=== PATIENT | male | born 1950 | race Caucasian/White ===

== ENCOUNTER 2017-04-30 23:20 | Emergency (ER) | payer MEDICARE, OTHER ==
[~2017-04-30] VITALS: Ht 167.6 cm; Wt 90.0 kg
[2017-04-30 23:38] VITALS: BP 123/71; PULSE 71; RESP 16; O2SAT 95
[2017-04-30] MEDS ORDERED: HALOPERIDOL LACTATE 5 MG/ML AMP IM ONE (23:45)
--- NOTE | 2017-04-30 23:51 | PD ---
Physical Exam Date Seen by Provider: Apr 30, 2017 Time Seen by Provider: 23:45 Narrative Patient is brought in by police under a Crane Act. He was reportedly at a bar and became very intoxicated. He was asked to leave. The police attempted to take him home but he could not remember where he lived. He reportedly subsequently told the police that he just needed to . They then took out a Crane Act and brought him to us. Data Data Last Documented VS Vital Signs Date Time Temp Pulse Resp B/P (MAP) Pulse Ox O2 Delivery O2 Flow Rate FiO2 04/30/17 23:38 71 16 123/71 (88) 95 Orders Orders Restraints Non-Violent MELANIA.Q3H (04/30/17 23:39) Haloperidol Inj (Haldol Inj) (04/30/17 23:45) MDM Supervised Visit with DANIA: Yes Narrative Course I, Dr. Matos, have reviewed the advance practice practitioner's documentation and am in agreement, met with the patient face to face, made the diagnosis, and the medical decision making was done by me. *My assessment and Findings: Patient is intoxicated. He is intermittently uncooperative. However, he does not meet criteria for a Crane Act. He is simply intoxicated. The Crane Act has been lifted. He will be kept here until morning for his safety. Please see Mark Farris PA-C's note for results of laboratory and radiographic evaluation, ED course, final diagnosis and disposition Deidra Matos MD Apr 30, 2017 23:51
--- NOTE | 2017-05-01 00:42 | PD ---
HPI Chief Complaint: Alcohol/Drug Intoxication Time Seen by Provider: 23:24 Travel History International Travel<30 days: No Contact w/Intl Traveler<30days: No Traveled to known affect area: No History of Present Illness HPI 66-year-old white male presents to emergency department under a Crane act by PD. They had responded to a intoxicated individual at a bar. 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 He was asked to leave. The patient became disruptive. Police attempted to bring the patient to his residence. Unfortunately the patient was unable to determine his residence. PD was concerned that he was too intoxicated to be left alone. The then made statements that he just wanted to so the police officer booking placed him under Crane act. The patient here denies any suicidal ideation. He denies any homicidal ideation. He admits to consuming a large amount of alcohol today. He has no medical complaints. [facility] Past Medical History High Cholesterol: Yes Coronary Artery Disease: Yes Diabetes: Yes Patient Takes Glucophage: No Diminished Hearing: No Hypertension: Yes Past Surgical History Coronary Stent: Yes ("3 OR 4 STENTS") Social History Alcohol Use: Yes Tobacco Use: No Substance Use: No Allergies-Medications (Allergen,Severity, Reaction): Coded Allergies: No Known Allergies (Unverified , 04/30/17) Review of Systems ROS Limitations: Intoxication Physical Exam Narrative GENERAL: Well-nourished, well-developed patient. Patient appears intoxicated. Smells of EtOH. He is ataxic. SKIN: Warm and dry. HEAD: Normocephalic and atraumatic. EYES: No scleral icterus. No injection or drainage. ENT: No nasal drainage noted. Mucous membranes pink. Airway patent. NECK: Supple, trachea midline. Moves head freely without obvious discomfort. CARDIOVASCULAR: Regular rate and rhythm without murmurs, gallops, or rubs. RESPIRATORY: Breath sounds equal bilaterally. No accessory muscle use. GASTROINTESTINAL: Abdomen soft, non-tender, nondistended. EXTREMITIES: No cyanosis or edema. BACK: Nontender without obvious deformity. No CVA tenderness. NEURO: Patient is alert and oriented to person only. no sensorimotor deficits. Nonfocal. Slurred speech. PSYCH: No delusions. No auditory or visual hallucinations. Poor insight and judgment. Data Data Last Documented VS Vital Signs Date Time Temp Pulse Resp B/P (MAP) Pulse Ox O2 Delivery O2 Flow Rate FiO2 04/30/17 23:38 71 16 123/71 (88) 95 Orders Orders Restraints Non-Violent MELANIA.Q3H (04/30/17 23:39) Haloperidol Inj (Haldol Inj) (04/30/17 23:45) MDM Medical Decision Making Medical Screen Exam Complete: Yes Emergency Medical Condition: Yes Medical Record Reviewed: Yes Differential Diagnosis MDM: High Differential diagnoses: Schizophrenia, schizoaffective disorder, bipolar, anxiety, depression, adjustment reaction, mood disorder NOS, ODD, depressive disorder NOS, dementia, dementia with agitation, psychosis NOS, substance induced mood disorder, DMDD, Asperger syndrome, infection,electrolyte abnormality, malingering. Narrative Course Mental health screening discussed with the patient. Psychiatric screen ordered. The patient is becoming very disruptive to his care. He will not stay in his room. There is concern for patient safety as well as CT of the medical staff. The patient is placed in a nonviolent restraints. He is given Haldol 10 mg IM. The patient is not a threat to himself or others under a Crane act. The patient's intoxicated. He does not meet Crane act criteria. The Crane act will be lifted. The patient will be allowed to sober up. The ER. Once the patient exhibited sobriety the patient will be able to be discharged safely in the morning. This is alcohol intoxication, alcohol induced mood disorder Diagnosis Primary Impression: Alcohol intoxication Qualified Codes: F10.920 - Alcohol use, unspecified with intoxication, uncomplicated Additional Impression: Alcohol-induced mood disorder Patient Instructions: General Instructions Additional Instructions: Rest. Increase fluids. Avoid alcohol. Avoid illegal substances. Follow-up with [facility] for detox. Do not operate a car or any heavy machinery under the influence of alcohol or drugs. Follow-up with a medical doctor this week. Return to the ER for emergencies Med/Other Pt SpecificInfo: No Meds Exist/No RX given Disposition: 01 DISCHARGE HOME Condition: Stable Nathaniel Farris May 01, 2017 00:42
[2017-05-01 06:14] VITALS: BP 131/72; PULSE 82; RESP 16; O2SAT 100
== END 2017-05-01 06:37 | disposition home or self-care (01) ==
LOC: NEPD 23:20
DX: F10.94 Alcohol use, unspecified with alcohol-induced mood disorder (principal); E78.00 Pure hypercholesterolemia, unspecified; I25.10 Atherosclerotic heart disease of native coronary artery without angina pectoris; E11.9 Type 2 diabetes mellitus without complications; I10 Essential (primary) hypertension
CPT/HCPCS: 96372; 99285; J1630